=== PATIENT | male | born 1990 | race African-American/Black ===

== ENCOUNTER 2019-03-04 20:08 | Emergency (ER) | payer SELFPAY ==
[~2019-03-04] VITALS: Ht 177.8 cm; Wt 74.8 kg
--- OUTSIDE RECORDS SUMMARY | 2019-03-04 20:11 | XMS REPORT ---
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 Allergies, Adverse Reactions, Alerts Allergy Name Allergy Type Status Severity Reaction(s) Onset Date Inactive Date Treating Clinician Comments No Known Allergies DA Active U 2019-01-12 00:00:00 Medications This patient has no known medications. Results Test Description Test Time Test Comments Text Results Atomic Results Result Comments BASIC METABOLIC PANEL 2019-02-23 20:34:00 SODIUM (test code=NA) 141 mmol/L 136-145 POTASSIUM (test code=K) 3.9 mmol/L 3.5-5.1 CHLORIDE (test code=CL) 104 mmol/L 101-109 CARBON DIOXIDE (test code=CO2) 24.2 mmol/L 21-32 ANION GAP (test code=GAP) 17 mmol/L 10-20 GLUCOSE (test code=GLU) 102 mg/dL 74-106 BLOOD UREA NITROGEN (test code=BUN) 14 mg/dL 3-21 GLOMERULAR FILTRATION RATE (test code=GFR) > 60 mL/min >=60 Estimated GFR by using Modified MDRD formula.Chronic kidney disease is defined as either kidney damageor GFR <60 mL/min/1.73 m2 for >3 months. CREATININE (test code=CREAT) 1.02 mg/dL 0.55-1.3 BUN/CREATININE RATIO (test code=BUN/CREA) 13.7 10-20 CALCIUM (test code=CA) 8.1 mg/dL 8.4-10.2 BASIC METABOLIC [id number] 18:14:00* Test Item Value Reference Range Comments SODIUM (test code=NA) mmol/L 135-148 POTASSIUM (test code=K) mmol/L 3.5-5.1 CHLORIDE (test code=CL) mmol/L 101-109 CARBON DIOXIDE (test code=CO2) 24.2 mmol/L 21-32 ANION GAP (test code=GAP) mmol/L 10-20 GLUCOSE (test code=GLU) 102 mg/dL 74-106 BLOOD UREA NITROGEN (test code=BUN) 14 mg/dL 3-21 GLOMERULAR FILTRATION RATE (test code=GFR) > 60 mL/min >=60 Estimated GFR by using Modified MDRD formula.Chronic kidney disease is defined as either kidney damageor GFR <60 mL/min/1.73 m2 for >3 months. CREATININE (test code=CREAT) 1.02 mg/dL 0.55-1.3 BUN/CREATININE RATIO (test code=BUN/CREA) 13.7 10-20 CALCIUM (test code=CA) 8.1 mg/dL 8.4-10.2 - XR CHEST 1 [id number] 17:40:00 Name: ANKUR GALICIA [facility] : 1990 Age/S:28 /M [address] [facility] Unit#:[id number] Loc: [place] [address] Phys: Jay Esqueda MD Dis Date: PHONE #: [phone] Status: REG ER FAX #: [phone] Exam Date: 02/23/2019 Reason: cough EXAMS: CPT CODE: [id number] XR CHEST 1 V [id number] REASON FOR EXAM: cough Exam Order Date: 02/23/2019 5:01 PM Ordering M.D.: Jay Esqueda MD PROCEDURE: - XR CHEST 1 V COMPARISON: None FINDINGS: The cardiomediastinal silhouette is within normal limits for size. There is no evidence of an acute infiltrate, pleural effusion, or pneumothorax. The trachea is midline. The regional bones, and the visualized upper abdomen are unremarkable. IMPRESSION: No acute cardiopulmonary process. at 1740 Reported and signed by: Reva Amezquita M.D. CC: Jay Esqueda MD Technologist: Anat Jo Trnscrpt Data: 02/23/2019 (1740) [email or web address] Orig Print D/T: S: 02/23/2019 (3927) PAGE 1 Signed Report CBC W/AUTO [id number] 17:33:00* Test Item Value Reference Range Comments WHITE BLOOD CELL (test code=WBC) 8.8 K/mm3 4.5-12.5 RED BLOOD CELL (test code=RBC) 4.48 mill/mm3 4.0-5.8 HEMOGLOBIN (test code=HGB) 12.9 gram/dL 13.0-17.5 HEMATOCRIT (test code=HCT) 38.2 % 42.0-52.0 MEAN CELL VOLUME (test code=MCV) 85.3 fL 80-98 MEAN CELL HGB (test code=MCH) 28.8 picogram 27.0-33.0 MEAN CELL HGB CONCETRATION (test code=MCHC) 33.8 gram/dL 33.0-36.0 RED CELL DISTRIBUTION WIDTH (test code=RDW) 12.4 % 11.6-16.2 RED CELL DISTRIBUTION WIDTH SD (test code=RDW-SD) 39.0 fL 37.0-51.0 PLATELET COUNT (test code=PLT) 311 K/mm3 150-450 MEAN PLATELET VOLUME (test code=MPV) 10.8 fL 6.7-11.0 NEUTROPHIL % (test code=NT%) 39.7 % 39.0-69.0 LYMPHOCYTE % (test code=LY%) 25.8 % 25.0-55.0 MONOCYTE % (test code=MO%) 8.7 % 0.0-10.0 EOSINOPHIL % (test code=EO%) 24.5 % 0.0-5.0 BASOPHIL % (test code=BA%) 1.1 % 0.0-1.0 NEUTROPHIL # (test code=NT#) 3.49 K/mm3 1.8-7.7 LYMPHOCYTE # (test code=LY#) 2.27 K/mm3 1.0-5.0 MONOCYTE # (test code=MO#) 0.77 K/mm3 0-0.8 EOSINOPHIL # (test code=EO#) 2.16 K/mm3 0.0-0.5 BASOPHIL # (test code=BA#) 0.10 K/mm3 0.0-0.2 MANUAL DIFF REQUIRED (test code=MDIFF) NO
[2019-03-04] MEDS ORDERED: ALBUTEROL SULF 0.083% NEB SOLN 3 ML NEB NEB STA ×2 (20:21→22:20)
--- NOTE | 2019-03-04 20:25 | NUR ---
PT RECEIVING HHN TX AT THIS TIME
[2019-03-04] MEDS ORDERED: IPRATROPIUM BROMIDE 0.02% 2.5 ML NEB NEB ONE ×2 (20:30→22:30)
[2019-03-04] MEDS ORDERED: METHYLPREDNISOLONE SOD SUCC 125 MG/2ML VIAL IM ONE (20:30)
--- NOTE | 2019-03-04 21:56 | Diagnostic Imaging Report ---
EXAMINATION: CHEST 2 VIEWS INDICATION: ^SOB, COUGH X1 WEEK ^[id number] ^[id number] COMPARISON: None FINDINGS: PA and lateral views TUBES and LINES: None. LUNGS: Lungs are well inflated. Right infrahilar airspace opacity is suggestive of infiltrate. Left lung is clear. PLEURA: No pleural effusion or pneumothorax. HEART AND MEDIASTINUM: The cardiomediastinal silhouette is unremarkable. BONES AND SOFT TISSUES: No focal osseous lesions. Soft tissues are unremarkable. UPPER ABDOMEN: No free air under the diaphragm. IMPRESSION: Right infrahilar airspace opacity suggestive of infiltrate. Signed by: Dr. Franko Colin MD on 03/04/2019 9:53 PM
[2019-03-04] MEDS ORDERED: LEVOFLOXACIN 500 MG TAB ONE (22:23)
[2019-03-04] MEDS ORDERED: LEVOFLOXACIN 250 MG TAB ONE (22:23)
[2019-03-04] MEDS ORDERED: LEVOFLOXACIN 250 MG TAB PO ONE (22:30)
[2019-03-04] MEDS ORDERED: LEVOFLOXACIN 500 MG TAB PO ONE (22:30)
== END 2019-03-04 22:53 | disposition home or self-care (01) ==
LOC: ER 20:08
DX: J15.9 Unspecified bacterial pneumonia (principal); J45.41 Moderate persistent asthma with (acute) exacerbation
CPT/HCPCS: 71046; 94640 ×2; 99283; J2930

== ENCOUNTER 2019-06-04 18:24 | Emergency (ER) | payer SELFPAY ==
[~2019-06-04] VITALS: Ht 177.8 cm; Wt 74.8 kg
--- OUTSIDE RECORDS SUMMARY | 2019-06-04 18:27 | XMS REPORT | Clinical Summary ---
Author Author [facility] Address Unknown Phone Unavailable Care Team Providers Care Conservation Enforcement Officer Name Role Phone Provider, Unknown PCP Unavailable Allergies No Known Allergies Medications End Date Status Medication Sig Dispensed Refills Start Date 04/17/2019 albuterol (PROAIR Inhale 1-2 2 Inhaler 0 HFA,PROVENTIL puffs every 6 9 HFA,VENTOLIN HFA) 90 (six) hours mcg/actuation inhaler as needed for wheezing or shortness of breath for up to 30 days. 03/23/2019 predniSONE (DELTASONE) 10 Take 5 20 tablet 0 mg tablet tablets (50 9 mg total) by mouth daily for 4 days. 04/01/2019 codeine-guaifenesin Take 5 mL by 118 mL 0 (GUAIFENESIN AC) 10-100 mouth 3 9 mg/5 mL liquid (three) times a day as needed for cough for up to 14 days. 03/22/2019 azithromycin (ZITHROMAX Take 2 6 tablet 0 Z-ESTRELLITA) 250 MG tablet tablets the 9 first day, then 1 tablet daily for 4 days. 04/17/2019 benzonatate (TESSALON) Take 2 30 capsule 0 100 MG capsule capsules (200 9 mg total) by mouth 3 (three) times a day as needed for cough for up to 30 days. 05/17/2019 fluticasone Inhale 1 60 each 0 furoate-vilanterol (BREO inhalations 9 ELLIPTA) 100-25 mcg/dose daily for 60 blister with device days. powder for inhalation 05/01/2019 predniSONE (DELTASONE) 20 Take 2 20 tablet 0 mg tablet tablets (40 9 mg total) by mouth daily for 10 days. 05/21/2019 fluticasone Inhale 1 30 each 0 furoate-vilanterol (BREO inhalations 9 ELLIPTA) 100-25 mcg/dose daily for 30 blister with device days. powder for inhalation 05/21/2019 albuterol (ACCUNEB) 2.5 Take 3 mL 75 mL 0 mg /3 mL (0.083 %) (2.5 mg 9 nebulizer solution total) by nebulization every 6 (six) hours as needed for wheezing for up to 30 days. 05/21/2019 albuterol (PROAIR Inhale 1-2 1 Inhaler 0 HFA,PROVENTIL puffs every 6 9 HFA,VENTOLIN HFA) 90 (six) hours mcg/actuation inhaler as needed for wheezing for up to 30 days. Active Problems Not on file Encounters Care Team Description Date Type Specialty Lele Ibarra MD Moderate asthma with acute exacerbation, unspecified whether persistent (Primary Dx) 04/21/2019 Emergency Emergency Medicine Brent Bateman MD Exacerbation of intermittent asthma, unspecified asthma severity (Primary Dx); Dehydration; Acute viral syndrome; Acute bronchitis due to Rhinovirus 03/18/2019 Emergency Emergency Medicine after 06/03/2018 Social History Date Tobacco Use Types Packs/Day Years Used Never Assessed Sex Assigned at Date Recorded Not on file Industry Job Start Date Occupation Not on file Not on file Not on file Travel End Travel History Travel Start No recent travel history available. Last Filed Vital Signs Reading Time Taken Comments Vital Sign 122/56 04/21/2019 7:31 PM CDT Blood Pressure 93 04/21/2019 7:31 PM CDT Pulse 36.8 C (98.3 F) 03/18/2019 8:15 AM CDT Temperature 22 04/21/2019 7:31 PM CDT Respiratory Rate 96% 04/21/2019 7:31 PM CDT Oxygen Saturation - - Inhaled Oxygen Concentration 70.3 kg (155 lb) 04/21/2019 6:41 PM CDT Weight 175.3 cm (5' 9") 04/21/2019 6:41 PM CDT Height 22.89 04/21/2019 6:41 PM CDT Body Mass Index Plan of Treatment Health Maintenance Due Date Last Done Comments INFLUENZA VACCINE 05/08/2019 Procedures Comments Procedure Name Priority Date/Time Associated Diagnosis XR CHEST 2 VW STAT 03/18/2019 10:20 AM CDT ECG 12-LEAD STAT 03/18/2019 9:08 AM CDT SMEAR REVIEW STAT 03/18/2019 8:31 AM CDT ESTIMATED GFR STAT 03/18/2019 8:31 AM CDT TROPONIN STAT 03/18/2019 8:31 AM CDT MAGNESIUM LEVEL STAT 03/18/2019 8:31 AM CDT PHOSPHORUS LEVEL STAT 03/18/2019 8:31 AM CDT COMPREHENSIVE METABOLIC STAT 03/18/2019 PANEL 8:31 AM CDT HC COMPLETE BLD COUNT STAT 03/18/2019 W/AUTO DIFF 8:31 AM CDT RESPIRATORY PATHOGEN Routine 03/18/2019 PANEL 8:31 AM CDT INFLUENZA ANTIGEN TEST, Routine 03/18/2019 REFLEX NEGATIVE TO RPP 8:31 AM CDT ECG ED PRELIMINARY Routine 03/18/2019 INTERPRETATION 8:06 AM CDT after 06/03/2018 Results * XR Chest 2 Vw (03/18/2019 10:20 AM CDT) Specimen Narrative Performed At EXAMINATION:XR CHEST 2 VW RADIANT CLINICAL HISTORY:cough COMPARISON:None Technique:PA and lateral chest radiographs are obtained. IMPRESSION: 1.The lungs are clear. 2.There is no pleural fluid or pneumothorax. 3.The heart size and mediastinal contours are within normal limits. 4.There is no significant skeletal abnormality. [id number] Procedure Note Hm Interface, Radiology Results Incoming - 03/18/2019 10:28 AM CDT EXAMINATION: XR CHEST 2 VW CLINICAL HISTORY: cough COMPARISON: None Technique: PA and lateral chest radiographs are obtained. IMPRESSION: 1. The lungs are clear. 2. There is no pleural fluid or pneumothorax. 3. The heart size and mediastinal contours are within normal limits. 4. There is no significant skeletal abnormality. [id number] Performing Organization Address City/[facility] [address]/Zipcode Phone Number [facility] [address] [place] [address] * ECG 12 lead (03/18/2019 9:08 AM CDT) Ventricular 77 [facility] MUSE rate Atrial rate 77 [facility]USE KS interval 152 [facility] QRSD interval 86 [facility] QT interval 358 [facility] QTC interval 405 [facility] P axis 1 67 [facility] QRS axis 1 63 [facility] MUSE T wave axis 56 [facility] MUSE EKG impression Normal sinus rhythm with sinus [facility] MUSE arrhythmia-Normal ECG-No previous ECGs available- Specimen Narrative Performed At Performing Organization Address [facility] [address]/[facility] Services[facility] Phone Number [facility] [address] [place] [address] * Respiratory pathogen panel (03/18/2019 8:31 AM CDT) Pathologist [facility] Respiratory Positive for [place] pathogen panel Rhinovirus/Enterovirus [facility] Negative for all other pathogens tested: Negative for Adenovirus Negative for Coronavirus HKU1 Negative for Coronavirus NL63 Negative for Coronavirus 229E Negative for Coronavirus OC43 Negative for Human Metapneumovirus Negative for Influenza A Negative for Influenza A/H1 Negative for Influenza A/H3 Negative for Influenza A/H1-2009 Negative for Influenza B Negative for Parainfluenza Virus 1 Negative for Parainfluenza Virus 2 Negative for Parainfluenza Virus 3 Negative for Parainfluenza Virus 4 Negative for Respiratory Syncytial Virus Negative for Bordetella pertussis Negative for Chlamydophila pneumoniae Negative for Mycoplasma pneumoniae This real-time PCR assay detects the presence of nucleic acids (RNA or DNA) for the respiratory pathogens listed. A result of "Not-detected" does not exclude the possibility of the presence of one or more pathogens at concentrations less than the detectable limits of the assa (A) Comment: Specimen Information Specimen Source: Nares Specimen Site: Right Specimen Nares - Right Performing Organization Address [facility] [address]/[facility] Services[facility] Phone Number [facility] DEPARTMENT OF [address] [place] [address] [facility] MEDICINE [address] * Smear review (03/18/2019 8:31 AM CDT) Pathologist [facility] Platelet slide Jerrell adequate [place] review [facility] Specimen Performing Organization Address [facility] [address]/[facility] Servicescode Phone Number [facility] DEPARTMENT OF [facility] [place] [address] [facility] [address] [place] [address] * Estimated GFR (03/18/2019 8:31 AM CDT) [facility] Estimated GFR >=90 mL/min/1.73 m2 [place] Comment: CHRISTIANO CHAVARRIA RUST rpretation G1 >=90 Normal or high G2 60-89Mildly decreased S4q00-75 Mildly to moderately decreased S6e30-84 Moderately to severely decreased G4 15-29Severely decreased G5 <15Kidney failure The eGFR was calculated using the Chronic Kidney Disease Epidemiology Collaboration (CKD-EPI) equation. Interpretation is based on recommendations of the National Kidney Foundation-Kidney Disease Outcomes Quality Initiative (NKF-KDOQI) published in 2014. Specimen Plasma specimen Performing Organization Address [facility] [address]/[facility] Services[facility] Phone Number [facility] DEPARTMENT [address] [place] [address] [facility] [address] [place] [address] * Influenza antigen test, reflex negative to RPP (03/18/2019 8:31 AM CDT) [facility] Influenza Negative for Influenza A/B [place] antigen antigen. CHRISTIANO CHAVARRIA Comment: [facility] Specimen Information Specimen Source: Nares Specimen Site: Right Specimen Nares - Right Performing Organization Address [facility] [address]/Zipcode Phone Number [facility] DEPARTMENT OF [address] [place] [address] [place] [address] [facility] [address] [place] [address] * Troponin (03/18/2019 8:31 AM CDT) [facility] Troponin <0.006 0.000 - 0.040 ng/mL [place] Comment: [facility] changed methodology effective: 02/11/2019 at 10:00 am The new method has a 99th percentile cutoff of 0.040 ng/mL Specimen Plasma specimen Performing Organization Address City/[facility] [address]/[facility] Servicescode Phone Number [facility] [address] [place] [phone] PATHOLOGY AND GENOMIC MEDICINE [address] * CBC with platelet and differential (03/18/2019 8:31 AM CDT) WBC 12.94 (H) 4.50 - 11.00 k/uL [facility] RBC 5.39 4.40 - 6.00 m/uL [facility] HGB 15.3 14.0 - 18.0 g/dL [facility] HCT 46.5 41.0 - 51.0 % [facility] MCV 86.3 82.0 - 100.0 fL [facility] MCH 28.4 27.0 - 34.0 pg [facility] MCHC 32.9 31.0 - 37.0 g/dL [facility] RDW - SD 40.6 37.0 - 55.0 fL [facility] MPV 10.5 8.8 - 13.2 fL [facility] Platelet count 252 150 - 400 k/uL [facility] Nucleated RBC 0.00 /100 WBC [facility] Neutrophils 58.1 39.0 - 69.0 % [facility] Lymphocytes 13.4 (L) 25.0 - 45.0 % [facility] Monocytes 8.4 0.0 - 10.0 % [facility] Eosinophils 19.2 (H) 0.0 - 5.0 % [facility] Basophils 0.7 0.0 - 1.0 % [facility] Specimen Blood Performing Organization Address [facility] [address]/[facility] Servicescode Phone Number [place] [address] [place] [phone] PATHOLOGY AND GENOMIC MEDICINE [address] * Phosphorus level (03/18/2019 8:31 AM CDT) Phosphorus 2.7 2.4 - 4.5 mg/dL [facility] Specimen Plasma specimen Performing Organization Address City/[facility] [address]/Zipcode Phone Number [facility] [place] [address] [place] [address] PATHOLOGY AND GENOMIC MEDICINE [facility] [id number] [place] [address] * Magnesium level (03/18/2019 8:31 AM CDT) Magnesium 1.8 1.6 - 2.6 mg/dL [facility] Specimen Plasma specimen Performing Organization Address City/[facility] [address]/[facility] Services[facility] Phone Number [facility] [place] [address] [place] [address] PATHOLOGY AND GENOMIC MEDICINE [address] * Comprehensive metabolic panel (03/18/2019 8:31 AM CDT) Sodium 143 135 - 148 mEq/L [facility] Potassium 4.0 3.5 - 5.0 mEq/L [facility] Chloride 106 98 - 112 mEq/L [facility] CO2 25 24 - 31 mEq/L [facility] Anion gap 12@ANIO 7 - 15 mEq/L [facility] BUN 9 6 - 20 mg/dL [facility] Creatinine 0.90 0.70 - 1.20 mg/dL [facility] Glucose 128 (H) 65 - 99 mg/dL [facility] Calcium 9.6 8.3 - 10.2 mg/dL [facility] Protein 7.5 6.3 - 8.3 g/dL [place] Comment: [facility] 4.6-7.0 g/dL 1 week 4.4-7.6 g/dL 7 months-1year 5.1-7.3 g/dL 1-2 years5.6-7 .5 g/dL >3 years6.0-8 .0 g/dL 18-150 6.3-8.3 g/dL Albumin 4.3 3.5 - 5.0 g/dL [facility] A/G ratio 1.3 0.7 - 3.8 [facility] Alkaline 78 40 - 129 U/L [place] phosphatase [facility] AST 14 10 - 50 U/L [facility] ALT 15 5 - 50 U/L [facility] Total bilirubin 0.3 0.0 - 1.2 mg/dL [facility] Specimen Plasma specimen Performing Organization Address City/State/Zipcode [place] Number [place] [address] [place] [address] PATHOLOGY AND GENOMIC MEDICINE [facility] [address] [place] [address] [facility] * ECG ED Preliminary Interpretation - Not an Order (03/18/2019 8:06 AM CDT) Narrative Performed At Brent Bateman MD 03/19/20196:01 AM ECG ED Preliminary Interpretation - Not an Order Performed by: Brent Bateman MD Authorized by: Brent Bateman MD ECG reviewed by ED Physician in the absence of a nuclear supervising operator: yes Interpretation: Interpretation: normal Rate: ECG rate:77 ECG rate assessment: normal Rhythm: Rhythm: sinus rhythm Ectopy: Ectopy: none QRS: QRS axis:Normal QRS intervals:Normal Conduction: Conduction: normal ST segments: ST segments:Normal T waves: T waves: normal after 06/03/2018 Advance Directives For more information, please contact: [phone] Patient Distribution Manager Explanation Type Date Recorded Advance Directives, 03/18/2019 8:29 AM Living Will and Medical Power of Desktop Specialist
[2019-06-04] MEDS ORDERED: ALBUTEROL/IPRATROPIUM 3 ML NEB NEB ONE (18:45)
--- NOTE | 2019-06-04 18:45 | NUR ---
multiple attempts calling resp to notify of nebs.
[2019-06-04] MEDS ORDERED: METHYLPREDNISOLONE SOD SUCC 125 MG/2ML VIAL IM STA (19:02)
[2019-06-04] MEDS ORDERED: IPRATROPIUM BROMIDE 0.02% 2.5 ML NEB NEB STA (19:16)
[2019-06-04] MEDS ORDERED: ALBUTEROL SULF 0.083% NEB SOLN 3 ML NEB NEB STA (19:16)
[2019-06-04] MEDS ORDERED: METHYLPREDNISOLONE SOD SUCC 125 MG/2ML VIAL IV NR (19:30)
--- NOTE | 2019-06-04 19:51 | Diagnostic Imaging Report ---
EXAMINATION: CHEST 2 VIEWS INDICATION: Asthma. ^cough /sob COMPARISON: 03/04/2019 FINDINGS: TUBES and LINES: None. LUNGS: Lungs are well inflated. Perihilar peribronchial hazy opacity could be due to bronchitis/asthma. There is no evidence of pneumonia or pulmonary edema. PLEURA: No pleural effusion or pneumothorax. HEART AND MEDIASTINUM: The cardiomediastinal silhouette is unremarkable. BONES AND SOFT TISSUES: No acute osseous lesion. Soft tissues are unremarkable. UPPER ABDOMEN: No free air under the diaphragm. IMPRESSION: Perihilar peribronchial hazy opacity could be due to bronchitis/asthma Signed by: Dr. Vidal Jones M.D. on 06/04/2019 7:48 PM
[2019-06-04 20:31] VITALS: BP 139/100
== END 2019-06-04 20:32 | disposition home or self-care (01) ==
LOC: ER 18:24
DX: J45.40 Moderate persistent asthma, uncomplicated (principal); J20.9 Acute bronchitis, unspecified
CPT/HCPCS: 71046; 99283; J2930

== ENCOUNTER 2019-09-23 13:50 | Emergency (ER) | payer SELFPAY ==
--- NOTE | 2019-09-23 14:27 | NUR ---
NO ANSWER FOR TRIAGE AT THIS TIME
--- NOTE | 2019-09-23 14:35 | NUR ---
NO ANBSWER FOR TRIAGE AT THIS TIME
--- NOTE | 2019-09-23 14:50 | NUR ---
3RD ATTEMPT, NO ANSWER FOR TRIAGE AT THIS TIME
== END 2019-09-23 14:28 | disposition left against medical advice (07) ==
LOC: ER 13:50
DX: J45.909 Unspecified asthma, uncomplicated (principal)